=== PATIENT | male | born 1950 | race Two or more races ===

== ENCOUNTER 2024-10-29 00:44 | Emergency (ER) | payer MEDICARE, MEDICAID ==
[~2024-10-29] VITALS: Ht 170.2 cm; Wt 99.8 kg
[~2024-10-29 00:44] MED LIST: AMLO1CAP92 PO; BP MEDS; GLYB1TAB3 PO; METO1TAB10 PO; OMEP1CAP24 PO
[2024-10-29] MEDS ORDERED: KETOROLAC TROMETHAMINE INJ 30 MG/ML VIAL ONE (01:48)
[2024-10-29] MEDS ORDERED: BACLOFEN (10 MG) 10 MG TABLET ONE (01:48)
[2024-10-29] MEDS: BACLOFEN (10 MG) 10 MG TABLET PO ONE (01:59)
[2024-10-29] MEDS: KETOROLAC TROMETHAMINE INJ 30 MG/ML VIAL IM ONE (01:59)
[2024-10-29] MEDS ORDERED: BACL10TA PO (02:33)
[2024-10-29] MEDS ORDERED: KETO10TA2 PO (02:33)
[2024-10-29 04:03] VITALS: BP 135/110; TEMP 97.6; O2SAT 96
== END 2024-10-29 04:05 | disposition home or self-care (01) ==
LOC: ER 00:49
DX: M54.41 Lumbago with sciatica, right side (principal); I10 Essential (primary) hypertension; E11.9 Type 2 diabetes mellitus without complications; Z79.84 Long term (current) use of oral hypoglycemic drugs; Z79.899 Other long term (current) drug therapy
CPT/HCPCS: 99284; 96372 ×2; J1885; J2919